=== PATIENT | male | born 1970 | race Caucasian/White ===

== ENCOUNTER 2016-09-30 15:47 | Inpatient (IN) | payer OTHER ==
--- NOTE | ~2016-09-30 | HP ---
Unit #: [id number] #: [id number] Patient: SEVERINO KHAN [id number] [place] [address] [id number] MR#: [id number] NAME: SEVERINO KHAN. ROOM: P186 Age: 46 Sex: M Admission Date: 09/30/2016 : 1970 Attending Physician: Dominique Almanza M.D. Admitting Physician: Dominique Almanza M.D. Primary Care Physician: Generic Doctor Not In System HISTORY AND PHYSICAL HISTORY OF PRESENT ILLNESS Severino is a 46 year old, admitted to [facility] with depression, verbalizing wanting to hurt himself. PAST MEDICAL HISTORY 1. Obesity. 2. Gastroparesis. 3. History of polysubstance abuse. PAST SURGICAL HISTORY 1. Appendectomy. 2. Cholecystectomy. 3. Fractured femur with open reduction and internal fixation. 4. 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 ALLERGIES Darvocet, Toradol (rash). SOCIAL HISTORY He denies cigarettes, alcohol, and current illicit drug use but does have a history of illicit drug use. FAMILY HISTORY Medically noncontributory. REVIEW OF SYSTEMS CONSTITUTIONAL: No fever or chills. HEENT: Denies any sore throat, ear pain or runny nose. CARDIOVASCULAR: Denies chest pain, irregular heart rhythm or palpitations. CHEST: Denies shortness of breath or cough. No hemoptysis. GASTROINTESTINAL: Denies nausea, vomiting, diarrhea or chronic constipation. ENDOCRINE: Denies history of increased thirst or urination. No recent significant weight loss or gain. GENITOURINARY: Denies dysuria, frequency, or hematuria. SKIN: Denies any rashes. HEMATOLOGIC: Denies history of increased bleeding or bruising. MUSCULOSKELETAL: Denies any hot, swollen joints. No generalized muscle pain. NEUROLOGIC: Denies problems with vision or speech. No frequent, severe headaches. No numbness, tingling or weakness in any extremities. Denies loss of bladder or bowel control. Unit #: [id number] #: [id number] Patient: SEVERINO KHAN CURRENT MEDICATIONS 1. Seroquel 100 mg b.i.d. 2. Naproxen 500 mg b.i.d. 3. Remeron 45 mg q.h.s. 4. Vistaril 50 mg t.i.d. 5. Milk of magnesia p.r.n. 6. Maalox p.r.n. 7. Tylenol p.r.n. 8. Norvasc 10 mg daily 9. Effexor 75 mg daily PHYSICAL EXAMINATION GENERAL: Alert, obese, no apparent distress. VITAL SIGNS: Blood pressure 110/66, heart rate 80, respirations 16, and temperature 98.6. WEIGHT: 280 pounds. HEIGHT: 5 feet 2 inches. SKIN: Warm and dry without rash or lesion. HEENT: Normocephalic. TMs not viewed. Oral and nasal passages clear. Conjunctivae clear. PERRLA. EOMs intact. NECK: Supple without lymphadenopathy or thyromegaly. HEART: Regular rate and rhythm without murmur. LUNGS: Clear. ABDOMEN: Soft, nontender. : Not done. EXTREMITIES: No evidence of cyanosis, clubbing or edema. Moves all without focal deficit. NEUROLOGICAL: Grossly within normal limits. Cranial Nerves: II: Visual fountain are intact. III, IV AND : Extraocular movements are intact. Pupils are equal, round and reactive to light. V: Facial sensation is grossly normal. VII: Facial movements and expression are normal. VIII: Auditory acuity grossly intact. IX, X: Uvula is midline. Phonation is normal. XI: Patient shrugs shoulders and turns head normally. XII: Tongue protrudes in the midline. Sensory and Motor Function: Sensory and motor sensation is grossly normal. Motor: moves all extremities well. Coordination: Gait is normal. Deep Tendon Reflexes: Intact. IMPRESSION Psychiatric admission. RECOMMENDATIONS Psychiatric, per psychiatrist. MEDICAL 1. I see no contraindications to participating in facility's activities. 2. Continue Norvasc, monitor blood pressure every shift. MEDICAL PROGNOSIS Good. MEDICAL CONDITION Stable. Dictated by... Unit #: [id number] #: [id number] Patient: SEVERINO KHAN P.A.-C. for Kenneth Bragg/mazin TD: 10/01/2016 12:35 JOB #: [id number] HISTORY AND PHYSICAL X So Prince X HISTORY AND PHYSICAL
--- NOTE | ~2016-09-30 | PN ---
Unit #: [id number] #: [id number] Patient: LASHA KHAN [id number] [facility] [address] [place] [address] [id number] I MR#: [id number] NAME: LASHA KHAN. ROOM: 86 Age: 46 Sex: M Admission Date: 09/30/2016 : 1970 Attending Physician: Dominique Almanza M.D. Admitting Physician: Dominique Almanza M.D. Primary Care Physician: Generic Doctor Not In System [facility] PROGRESS NOTES DATE 10/02/2016 DISCUSSION Mr. Khan is a 46-year-old white male with mood disorder and psychosis who was seen today and chart was reviewed and case was discussed with the staff. He was laying in his bed and reports not feeling good and reports persistent depression, anxiety, restlessness. He has been taking medications and tolerating them fairly well with no reported side effects. MENTAL STATUS EXAMINATION Middle-aged white male who was casually dressed with fair personal hygiene and appears to be in no acute distress or discomfort. He was awake and alert on interaction with intact orientation. His mood was anxious with congruent affect. His speech is slow and goal-directed. He denies any suicidal or homicidal ideations and also denies any auditory or visual hallucinations. His insight and judgement remains slightly impaired. TREATMENT PLAN 1. Will continue on his current medications and treatment protocol. Will monitor his response to the medications and make further adjustments as needed. 2. Will continue to follow up. Dictated by... Kenneth Gale/martha TD: 10/02/2016 21:49 JOB #: [id number] Unit #: [id number] #: [id number] Patient: LASHA KHAN PROGRESS NOTES X Dominique Almanza MD PROGRESS NOTE
--- NOTE | ~2016-09-30 | PN ---
Unit #: [id number] #: [id number] Patient: LASHA KHAN [id number] [facility] [address] [place] [address] [id number] I MR#: [id number] NAME: LASHA KHAN. ROOM: P178 Age: 46 Sex: M Admission Date: 09/30/2016 : 1970 Attending Physician: Dominique Almanza M.D. Admitting Physician: Dominique Almanza M.D. Primary Care Physician: Generic Doctor Not In System [facility] PROGRESS NOTES DATE OF SERVICE: 10/01/2016 SUBJECTIVE Mr. Khan is a 46-year-old white male, who was seen today and chart was reviewed and the case was discussed with the staff, who reports the patient has been anxious and withdrawn, though has not shown any agitation or aggression and has been cooperative with the treatment recommendations. He has been taking the medications and tolerating them fairly well with no reported side effects. MENTAL STATUS EXAMINATION Middle-aged white male, who was casually dressed with fair personal hygiene, appears to be in no acute distress or discomfort. He was awake and alert on interaction with intact orientation. His mood was anxious and depressed with a congruent affect. His speech was slow and goal directed. He reports having suicidal ideations as well as auditory hallucinations. His insight and judgment remain significantly impaired. TREATMENT PLAN 1. We will continue him on his current medications and treatment protocol. We will monitor his response to the medications and make further adjustments as needed. 2. We will continue to follow up. Dictated by... Kenneth Gale/cornelia TD: 10/02/2016 15:06 JOB #: [id number] [facility] PROGRESS NOTES X Dominique Almanza MD PROGRESS NOTE
--- NOTE | ~2016-09-30 | DS ---
Unit #: [id number] #: [id number] [facility]UR[facility] [id number] [facility] [address] [place] [address] [id number] I MR#: [id number] NAME: LASHA BURNS. ROOM: [facility] Age: 46 Sex: M Admission Date: 09/30/2016 : 1970 Discharge Date: 10/03/2016 Attending Physician: Dominique Almanza M.D. Primary Care Physician: Generic Doctor Not In System DISCHARGE SUMMARY SUBJECTIVE Mr. Burns is a 46-year-old white male who comes in as a self-referred to the hospital. DISCHARGE DIAGNOSES Psychiatric: Major depressive disorder, recurrent, . HISTORY OF PRESENT ILLNESS Please see initial psychiatric evaluation for details. PAST PSYCHIATRIC HISTORY Please see initial psychiatric evaluation for details. PAST MEDICAL HISTORY Please see initial psychiatric evaluation for details. HOSPITAL COURSE The patient was admitted to the adult psychiatric unit at [facility] sonal Kemp and was oriented to the hospital environment. Routine p.r.n. medications were initiated and he was started back on his home medications and detox protocol was initiated as well. He initially seen to be fairly well and was less restless and anxious, but still having detox symptoms, however, late night of 10/02/2016 his symptoms have usually seen to be slowly quite hard and having started wheezing in the sleep. He has been noted to jaw dropping and medical consultation was requested as the O2 sats dropped to 80s and he was sent out to the emergency room from he stated and reports are indicated that he continued to just withdrawal. DISCHARGE CONDITION Stable. PROGNOSIS Guarded. Dictated by... Kenneth Gale/cornelia TD: 10/03/2016 22:39 JOB #: [id number] Unit #: [id number] #: [id number] Patient: LASHA BURNS DISCHARGE SUMMARY X Dominique Almanza MD X DISCHARGE SUMMARY
--- NOTE | ~2016-09-30 | PA ---
Unit #: [id number] #: [id number] Patient: LASHA KHAN [id number] [facility] [address] [place] [address] [id number] I MR#: [id number] NAME: LASHA KHAN. ROOM: P186 Age: 46 Sex: M Admission Date: 09/30/2016 : 1970 Date of Assessment: 09/30/2016 Attending Physician: Dominique Almanza M.D. Admitting Physician: Dominique Almanza M.D. Primary Care Physician: Generic Doctor Not In System PSYCHIATRIC ASSESSMENT IDENTIFYING DATA Mr. Khan is a 46-year-old, , white male, who is a resident of [place], [place], who is very well known to us from previous multiple encounters and was transferred to us from [facility]. CHIEF COMPLAINT "I've been hearing voices telling me to hurt myself." HISTORY OF PRESENT ILLNESS Mr. Khan is a 46-year-old white male, who was transferred to us from [facility] Emergency Room where he was brought in by his mother because he was hearing voices that telling him to hurt himself and that he was going to stab himself today and that has been going on for 4 to 5 days and he has been hearing voices to hurt someone else and "right, wrongs and sabianism stuffs and I cannot go into it right now. I feel real depressed. Arthritis is bothering me. My son is getting ready to go to the [facility]. A lot of things are going on. I feel overwhelmed. I'm not sleeping, may be 3 hours, anxiety, real bad. I cannot catch my breath, I'm going through it. I've been going through it for a week now." The patient also has to move due to building being sold and has been living with his mother and brother and does endorse feelings of hopelessness and helplessness, and suicidal ideation and as such, recommendation for inpatient level of care was made. The patient was medically cleared and then transferred to us. SUBSTANCE ABUSE HISTORY The patient reports history of alcohol dependence and has been drinking a pint to a fifth and reports that he has been binge drinking and his last drink was a couple of days ago and had a blood alcohol level of 0 upon presentation. He also reports that he has been smoking 3 to 4 blunts a day. PAST PSYCHIATRIC HISTORY The patient has had a history of multiple inpatient psychiatric hospitalizations at [facility] and has been diagnosed and treated for bipolar disorder and has a history of poor compliance with outpatient treatment recommendation. PAST MEDICAL HISTORY Significant for hypertension, gastroesophageal reflux disease. ALLERGIES Unit #: [id number] #: [id number] Patient: LASHA KHAN Darvocet and Toradol. PERSONAL AND SOCIAL HISTORY A 46-year-old white male, who reports that he is and and currently has been living at home with his mother and his brother and is unemployed and has poor social support system. MENTAL STATUS EXAMINATION Middle-aged white male, who was casually dressed with fair personal hygiene, appears to be in no acute distress or discomfort. He was awake and alert on interaction with intact orientation to time, place, and person. His mood was anxious and depressed with a congruent affect. His speech was slow and goal directed. He reports having suicidal ideations as well as command auditory hallucinations. His insight and judgment remain significantly impaired. DIAGNOSTIC IMPRESSION Psychiatric: Bipolar disorder, the most recent episode depressed, recurrent, moderate, with psychosis; alcohol dependence, moderate and acute withdrawals; cannabis dependence, moderate. Medical: Hypertension, arthritis. Stressors: Moderate psychosocial stressors. TREATMENT PLAN 1. The patient has presented with a history of substance abuse and mood disorder, and has been decompensating and will need inpatient hospitalization for safety and stabilization. We will start him back on his home medications. We will adjust the medications and monitor response. 2. Supportive therapy was provided to the patient. ESTIMATED LENGTH OF STAY 5 to 7 days. ABILITY TO HELP SELF Limited. WILLINGNESS TO HELP SELF The patient appears to be willing to help self. STRENGTHS 1. Communicative. 2. Cooperative. PROBLEMS 1. Chronic dysphoric symptoms. 2. Chronic chemical dependency. 3. Poor social support system. DISCHARGE CRITERIA This will be contingent upon the patient's ability to show resolution of his depression and anxiety and his ability to stay safe to himself, particularly after discharge from the hospital. Dictated by... Dominique Almanza M.D. Unit #: [id number] #: [id number] Patient: LASHA KHAN BECKY/modl TD: 10/01/2016 08:31 JOB #: [id number] PSYCHIATRIC ASSESSMENT X Dominique Almanza MD PSYCHIATRIC ASSESSMENT
[~2016-09-30 15:47] MED LIST: ASPIRIN81 M1 PO; AUGMENTIN PO; BACTRIM DS TABL1 TAB PO; CELEXA PO; CIPRO PO; COUMADIN PO; CYMBALTA PO; DEPAKOTE; DEPAKOTE PO; DESYREL100 MG PO; EFFEXOR; EFFEXOR PO; FLAGYL PO; FLEXERIL10 MG PO; GEODAN PO; GEODON80 MG PO; KEFLEX PO; KLONOPIN; KLONOPIN PO; LOMOTIL TABLET1 TAB PO; LORTAB 10-5001 EACH PO; LORTAB 5/500 TA1 TA1 PO; LORTAB 7.5-5001 TAB PO; LORTAB 7.51 TAB 7.5/ PO; NEURONTIN PO; NICOTINE TRANSD21 MG EXT; PAXIL PO; PERCOCET PO; PERPHENAZINE8 MG PO; PHENERGAN PO; PRILOSEC PO; PROTONIX PO; QUESTRAN PACK4 G/PKT PO; RISPERDAL0.25 MG; RISPERDAL3 MG PO; SEROQUEL; SEROQUEL PO; SEROQUEL XR200 MG PO; THORAZINE; THORAZINE PO; THORAZINE50 MG PO; TRAZODONE HCL300 MG PO; TRAZODONE PO; VICODIN 5/1 TAB 5/50 PO; VICODIN 5/500 T1 TAB PO; ZITHROMAX PO; [UNRECOGNIZED DRUG - OTHER]; [UNRECOGNIZED DRUG - OTHER]; [UNRECOGNIZED DRUG - OTHER] PO; [UNRECOGNIZED DRUG - OTHER] PO; [UNRECOGNIZED DRUG - OTHER] PO
[2016-10-01 12:24] LABS: BASOPHIL# 0.1 X10e3 (0-0.3); EOSINOPHIL# 0.4 X10e3 (0-0.7); EOSINOPHIL% 4.4 % (0.0-7.0); HEMOGLOBIN 14.8 gm/dL (13.0-16.0); LYMPHOCYTE% 24.2 % (17.0-45.0); MEAN CELL VOLUME 86.4 FL (83-96); MEAN CORPUSCULAR HEMOGLOBIN 28.5 PG (28-34); MEAN CORPUSCULAR HGB CONC 32.9 g/dL (30-36); MEAN PLATELET VOLUME 9.7 FL (6.5-11.5); MONOCYTE# 0.7 X10e3 (0-1.0); MONOCYTE% 8.3 % (3.0-12.0); NEUTROPHIL% 62.1 % (40-75); PLATELET COUNT 151 X10e3 (140-420); RED CELL DISTRIBUTION WIDTH 14.2 % (11.0-15.5); WHITE BLOOD COUNT 8.1 X10e3 (4.0-10.5)
[2016-10-01 12:41] LABS: DIFF IND NO
[2016-10-01 12:49] LABS: THYROID STIMULATING HORMONE 1.53 uIU/ml (0.34-5.60)
[2016-10-01 12:51] LABS: ALBUMIN SERUM 3.8 g/dL (3.5-5.0); ALKALINE PHOSPHATASE 55 U/L (32-92); ALT (SGPT) 52 U/L (10-40); AST (SGOT) 45 U/L (10-42); BILIRUBIN,TOTAL 0.5 mg/dL (0.2-2.0); BLOOD UREA NITROGEN 13 mg/dL (9-23); BUN/CREATININE RATIO 16.25; CALCIUM SERUM 9.5 mg/dL (8.4-10.2); CARBON DIOXIDE 31 mmol/L (22-31); CHLORIDE 98 mmol/L (100-111); CREATININE SERUM 0.8 mg/dL (0.6-1.4); GLOM FILT RATE Estimated ABOVE60 mL/min (>60); GLUCOSE FASTING 153 mg/dL (70-110); PROTEIN TOTAL SERUM 6.2 g/dL (6.0-8.3); SODIUM 140 mmol/L (135-145)
[2016-10-01 12:58] LABS: FREE THYROXIN (T4) 0.67 ng/dL (0.58-1.64)
== END 2016-10-03 06:15 | DRG 885 ==
LOC: P1E 15:47 → POF 10-01 12:53 → P1E 10-01 12:56 → POF 10-02 23:20 → P1E 10-02 23:21
PROVIDERS: Psychiatry & Neurology Psychiatry
DX: F31.32 Bipolar disorder, current episode depressed, moderate (principal); I10 Essential (primary) hypertension; F10.239 Alcohol dependence with withdrawal, unspecified; K21.9 Gastro-esophageal reflux disease without esophagitis; F12.20 Cannabis dependence, uncomplicated
CPT/HCPCS: 80053; 84439; 84443; 85025; 86592

== ENCOUNTER 2016-12-03 12:00 | Inpatient (IN) | payer OTHER ==
--- NOTE | ~2016-12-03 | PN ---
Unit #: [id number] #: [id number] Patient: LASHA KHAN [id number] [facility] [address] [place] [address] [id number] MR#: [id number] NAME: LASHA KHAN. ROOM: P205 Age: 46 Sex: M Admission Date: 12/03/2016 : 1970 Attending Physician: Dominique Almanza M.D. Admitting Physician: Dominique Almanza M.D. Primary Care Physician: Primary Care Physician Bridget PAGE NOTES DATE 12/04/2016 DISCUSSION Mr. Khan is a 46-year-old white male who was seen today and chart was reviewed and case was discussed with the staff. He has been anxious, withdrawn though has not shown any agitation, irritability and has been cooperative with treatment recommendations as he is taking medications and tolerating them fairly well with no reported side effects. MENTAL STATUS EXAMINATION Middle-aged white male who was casually dressed with fair personal hygiene and appears to be in no acute distress or discomfort. He was awake and alert with intact orientation. His mood was anxious with congruent affect. He denies any suicidal ideations and also denies any auditory or visual hallucinations. His insight and judgement . TREATMENT PLAN 1. Will continue on his current medications and treatment protocol and will monitor his response to medications and make further adjustments as needed. 2. Will continue to follow up. Dictated by... Dominique Almanza M.D. IAA/martha TD: 12/04/2016 15:56 JOB #: [id number] Unit #: [id number] #: [id number] Patient: LASHA KHAN BRITTNEY PROGRESS NOTES Page 1 of 1 X Dominique Almanza MD PROGRESS NOTE
--- NOTE | ~2016-12-03 | PA ---
Unit #: [id number] #: [id number] Patient: LASHA KHAN [id number] [facility] [address] [place] [address] [id number] I MR#: [id number] NAME: LASHA KHAN. ROOM: P205 Age: 46 Sex: M Admission Date: 12/03/2016 : 1970 Date of Assessment: 12/03/2016 Attending Physician: Dominique Almanza M.D. Admitting Physician: Dominique Almanza M.D. Primary Care Physician: Primary Care Physician No PSYCHIATRIC ASSESSMENT DATE OF SERVICE 12/03/2016. IDENTIFYING DATA Mr. Khan is a 46-year-old, white male, who is very well known to me from previous multiple encounters and is a resident of [place], [place], and was transferred to us from [facility]. CHIEF COMPLAINT "I've been having suicidal thoughts with a plan to stab myself before 4 to 5 days." HISTORY OF PRESENT ILLNESS Mr. Khan is a 46-year-old white male with long history of mood disorder and substance abuse, who was once again transferred back to us from [facility], where he was brought in on a voluntary basis stating that he has been having suicidal thoughts with a plan to stab himself "due to voices telling me to kill myself. It has been getting worse lately. Today, it was really bad. I'm taking my medication and my PCP has been prescribing it and I've not been about 6 to 7 months, but needed to get established again. I've also been on a drinking binge for about one month and then, I'm drinking about a fifth of whiskey and my last use was last night." The patient reports that he has also been smoking cannabis 3 times a week about a 1 to 2 blunts and last use a few days ago and reports increasing stressors after learning his son is going to the retirement and awaiting for a timeframe for sentencing and it has moved recently and he is finalizing his divorce soon as well. Mother brought him to the hospital and reports that he has been suicidal for 4 to 5 days. Hearing voices, telling him to stab himself, and the patient was seen to be a significant threat to himself and as such recommendation for inpatient level of care for safety and stabilization was made. The patient was transferred to us for substance abuse. The patient reports history of experimentation with cocaine and cannabis, but alcohol has been his drug of choice as he reports that he has been drinking since he was 28 years old and currently has been drinking fifth of whiskey a day. PAST PSYCHIATRIC HISTORY The patient has had history of multiple inpatient psychiatric hospitalizations at [facility], as well as outpatient treatment through [facility], and has been diagnosed and treated for bipolar disorder. Review of the medical records indicate that he has been on combination of psychotropic medications. Unit #: [id number] #: [id number] Patient: LASHA KHAN PAST MEDICAL HISTORY Hypertension, gastroesophageal reflux disease, rheumatoid arthritis, right finger fourth digit amputation. ALLERGIES Toradol and Darvocet. PERSONAL AND SOCIAL HISTORY A 46-year-old white male who reports that he is and and going through divorce, and lives with his mother and his brother and has fairly decent social support system. MENTAL STATUS EXAMINATION Middle-aged white male who was casually dressed with fair personal hygiene, appears to be in no acute distress or discomfort. He was awake and alert on interaction with intact orientation to time, place, and person. His mood was anxious and depressed with a congruent affect. His speech was slow and restricted in content. He reports having suicidal ideations, and does report auditory and visual hallucinations. His insight and judgment remain significantly impaired. DIAGNOSTIC IMPRESSION Psychiatric: Bipolar disorder, most recent episode depressed, recurrent, moderate, with psychosis; alcohol dependence, moderate and acute withdrawals. Medical: Hypertension, gastroesophageal reflux disease, rheumatoid arthritis, status post right fourth finger amputation. Stressors: Moderate psychosocial stressors. TREATMENT PLAN 1. The patient has presented with a history of mood disorder and substance abuse. We will recommend enrolling inpatient hospitalization for safety and stabilization. We will start him back on his home medications. We will adjust the medications and monitor response. 2. Supportive therapy was provided to the patient. 3. Safe, structured, and nourishing will be provided. ESTIMATED LENGTH OF STAY 5 to 7 days. ABILITY TO HELP SELF Limited. WILLINGNESS TO HELP SELF The patient appears to be willing to help self. STRENGTHS 1. Communicative. 2. Cooperative. PROBLEMS 1. Chronic dysphoric symptoms. 2. Poor social support system. DISCHARGE CRITERIA This will be contingent upon the patient's ability to show resolution of his depression and anxiety and his ability to stay safe to himself, particularly after discharge from the hospital. Unit #: [id number] #: [id number] Patient: LASHA KHAN Dictated by... Kenneth Gale/cornelia TD: 12/04/2016 07:30 JOB #: [id number] PSYCHIATRIC ASSESSMENT Page 1 of 1 X Dominique Almanza MD X PSYCHIATRIC ASSESSMENT
--- NOTE | ~2016-12-03 | HP ---
Unit #: [id number] #: [id number] Patient: SEVERINO KHAN [id number] [place] [address] [id number] I MR#: [id number] NAME: SEVERINO KHAN. ROOM: P205 Age: 46 Sex: M Admission Date: 12/03/2016 : 1970 Attending Physician: Dominique Almanza M.D. Admitting Physician: Dominique Almanza M.D. Primary Care Physician: Primary Care Physician No HISTORY AND PHYSICAL HISTORY OF PRESENT ILLNESS Severino is a 46 year old admitted to [address] [place] [address] with depression and verbalizing wanting to hurt himself. He has had numerous admissions to this facility for the same. PAST MEDICAL HISTORY 1. Morbid obesity. 2. Gastroparesis. 3. History of polysubstance abuse. PAST SURGICAL HISTORY 1. Appendectomy. 2. Cholecystectomy. 3. Fractured femur with ORIF. 4. 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 ALLERGIES Darvocet, Toradol (rash). SOCIAL HISTORY He denies cigarettes and alcohol. He has a history of illicit drug use but denies anything currently. FAMILY HISTORY Medically noncontributory. REVIEW OF SYSTEMS CONSTITUTIONAL: No fever or chills. HEENT: Denies any sore throat, ear pain or runny nose. CARDIOVASCULAR: Denies chest pain, irregular heart rhythm or palpitations. CHEST: Denies shortness of breath or cough. No hemoptysis. GASTROINTESTINAL: Denies nausea, vomiting, diarrhea or chronic constipation. ENDOCRINE: Denies history of increased thirst or urination. No recent significant weight loss or gain. GENITOURINARY: Denies dysuria, frequency, or hematuria. SKIN: Denies any rashes. HEMATOLOGIC: Denies history of increased bleeding or bruising. MUSCULOSKELETAL: Denies any hot, swollen joints. No generalized muscle pain. NEUROLOGIC: Denies problems with vision or speech. No frequent, severe headaches. No numbness, tingling or weakness in any extremities. Denies loss of bladder or bowel control. Unit #: [id number] #: [id number] Patient: SEVERINO KHAN CURRENT MEDICATIONS 1. Seroquel 100 mg t.i.d. 2. Proventil inhaler p.r.n. 3. Albuterol Mini-Neb q. 4 hours p.r.n. 4. Remeron 45 mg q.h.s. 5. Tylenol p.r.n. 6. Naproxen 500 mg b.i.d. 7. Milk of Magnesia p.r.n. 8. Maalox p.r.n. 9. Norvasc 10 mg q. day. 10. Multivitamin 1 q. day. 11. Detox protocol. PHYSICAL EXAMINATION GENERAL: Alert, morbidly obese. No apparent distress. VITAL SIGNS: Blood pressure 120/76, heart rate 80, respirations 16, and temperature 98.6. WEIGHT: 290. HEIGHT: 6 feet 2 inches. SKIN: Warm and dry without rash or lesion. HEENT: Normocephalic. TMs not viewed. Oral and nasal passages clear. Conjunctivae clear. PERRLA. EOMs intact. NECK: Supple without lymphadenopathy or thyromegaly. HEART: Regular rate and rhythm without murmur. LUNGS: Clear. ABDOMEN: Soft, nontender. : Not done. EXTREMITIES: No evidence of cyanosis, clubbing or edema. Moves all without focal deficit. NEUROLOGICAL: Grossly within normal limits. Cranial Nerves: II: Visual fountain are intact. III, IV AND : Extraocular movements are intact. Pupils are equal, round and reactive to light. V: Facial sensation is grossly normal. VII: Facial movements and expression are normal. VIII: Auditory acuity grossly intact. IX, X: Uvula is midline. Phonation is normal. XI: Patient shrugs shoulders and turns head normally. XII: Tongue protrudes in the midline. Sensory and Motor Function: Sensory and motor sensation is grossly normal. Motor: moves all extremities well. Coordination: Gait is normal. Deep Tendon Reflexes: Intact. IMPRESSION Psychiatric admission. RECOMMENDATIONS PSYCHIATRIC: Per psychiatrist. MEDICAL: I see no contraindication to participate in this facility's activities. MEDICAL PROGNOSIS Good. MEDICAL CONDITION Stable. Unit #: [id number] #: [id number] Patient: SEVERINO KHAN Dictated by... So Prince P.A.-C. for Kenneth Bragg/elliot TD: 12/04/2016 15:15 JOB #: [id number] HISTORY AND PHYSICAL Page 1 of 1 X So Prince HISTORY AND PHYSICAL
--- NOTE | ~2016-12-03 | DS ---
Unit #: [id number] #: [id number] Patient: LASHA BURNS [id number] [facility] [address] [place] [address] [id number] I MR#: [id number] NAME: LASHA BURNS. ROOM: [facility] Age: 46 Sex: M Admission Date: 12/03/2016 : 1970 Discharge Date: 12/09/2016 Attending Physician: Dominique Almanza M.D. Primary Care Physician: No Primary Care Physician DISCHARGE SUMMARY IDENTIFYING DATA Mr. Burns is a 46-year-old, white male, who is known to us from previous encounters who was self-referred to the hospital on a voluntary basis. DISCHARGE DIAGNOSES PSYCHIATRIC: 1. Bipolar disorder, most recent episode depressed, recurrent, moderate, without psychotic features. 2. Alcohol dependence, moderate, in acute withdrawal. MEDICAL 1. Hypertension. 2. Arthritis. STRESSORS: Moderate psychosocial stressors. HISTORY OF PRESENT ILLNESS Please see initial psychiatric evaluation. PAST PSYCHIATRIC HISTORY Please see initial psychiatric evaluation. PAST MEDICAL HISTORY Please see initial psychiatric evaluation. HOSPITAL COURSE The patient was admitted to the adult psychiatric chemical dependency unit at [facility] and was oriented to the hospital environment. Routine p.r.n. medications were initiated and he was started on alcohol detox protocol and was closely monitored. He was taking the medications regularly and seemed to be rather very seclusive to himself. However, he was not showing any agitation or aggression and was compliant with the treat recommendations and (1) . He was able to come out of the detox without any complications and was willing to continue treatment on outpatient basis and, as such, it was decided that he will be discharged and will continue treatment on outpatient basis. DISCHARGE MEDICATIONS 1. SEROquel 100 mg in the morning and afternoon 600 mg at bedtime for depression. 2. Remeron 45 mg at bedtime for depression. 3. Vistaril 50 mg p.r.n. q.6 hours for anxiety. Unit #: [id number] #: [id number] Patient: LASHA BURNS DISCHARGE CONDITION Stable. PROGNOSIS Fair. Dictated by... Kenneth Gale/sunny TD: 12/11/2016 08:36 JOB #: [id number] DISCHARGE SUMMARY Page 1 of 1 X Dominique Almanza MD DISCHARGE SUMMARY
--- NOTE | ~2016-12-03 | PN ---
Unit #: [id number] #: [id number] Patient: LASHA BURNS [id number] [facility] [address] [place] [address] [id number] I MR#: [id number] NAME: LASHA BURNS. ROOM: P205 Age: 46 Sex: M Admission Date: 12/03/2016 : 1970 Attending Physician: Dominique Almanza M.D. Admitting Physician: Dominique Almanza M.D. Primary Care Physician: Primary Care Physician Bridget LUGO PROGRESS NOTES DATE 12/06/2016 DISCUSSION Mr. Burns is a 46-year-old white male who was seen today and chart was reviewed and case was discussed with the staff. He has been anxious, withdrawn and rather seclusive to himself. Meanwhile, he has been cooperative with treatment recommendations and has been taking medications and tolerating them fairly well with no reported side effects. MENTAL STATUS EXAMINATION Middle-aged white male who was casually dressed with fair personal hygiene and appears to be in no acute distress or discomfort. He was awake and alert on interaction with intact orientation. His mood was anxious with congruent affect. He denies any suicidal or homicidal ideation. His insight and judgement remains slightly impaired. TREATMENT PLAN 1. We will continue on his current medications and treatment protocol and will monitor his response to the medications and make further adjustments as needed. 2. Will continue to follow up. Dictated by... Kenneth Gale/martha TD: 12/06/2016 22:05 JOB #: [id number] Unit #: [id number] #: [id number] Patient: LASHA BURNS BRITTNEY PROGRESS NOTES Page 1 of 1 X Dominique Almanza MD PROGRESS NOTE
--- NOTE | ~2016-12-03 | PN ---
Unit #: [id number] #: [id number] Patient: LASHA KHAN [id number] [facility] [address] [place] [address] [id number] I MR#: [id number] NAME: LASHA KHAN. ROOM: P205 Age: 46 Sex: M Admission Date: 12/03/2016 : 1970 Attending Physician: Dominique Almanza M.D. Admitting Physician: Dominique Almanza M.D. Primary Care Physician: Primary Care Physician Bridget LUGO PROGRESS NOTES DATE OF SERVICE 12/05/2016 DISCUSSION Mr. Khan is 46-year-old white male who was seen today. Chart was reviewed and case was discussed with the staff. He has been anxious, withdrawn, and rather seclusive to himself. Meanwhile, he has been cooperative with the treatment recommendations and has been taking the medications and tolerating them fairly well with no reported side effects. MENTAL STATUS EXAMINATION Middle-aged white male who is casually dressed with fair personal hygiene, appears to be in no acute distress or discomfort. He was awake and alert on interaction with intact orientation. His mood is anxious with a congruent affect. He denies any suicidal or homicidal ideations. His insight and judgment remain slightly impaired. TREATMENT PLAN 1. We will continue him on his current medications and treatment protocol. We will monitor his response to the medications and make further adjustments as needed. 2. We will continue to follow up. Dictated by... Dominique Almanza M.D. IAA/bzg TD: 12/05/2016 10:14 JOB #: [id number] BRITT[facility] PROGRESS NOTES Page 1 of 1 X Dominique Almanza MD PROGRESS NOTE
--- NOTE | ~2016-12-03 | PN ---
Unit #: [id number] #: [id number] Patient: LASHA BURNS [id number] [facility] [address] [place] [address] [id number] MR#: [id number] NAME: LASHA BURNS. ROOM: P205 Age: 46 Sex: M Admission Date: 12/03/2016 : 1970 Attending Physician: Dominique Almanza M.D. Admitting Physician: Dominique Almanza M.D. Primary Care Physician: Primary Care Physician Bridget LUGO PROGRESS NOTES DATE OF SERVICE: 12/07/2016 SUBJECTIVE Mr. Burns is a 46-year-old white male who was seen today and chart was reviewed, and case was discussed with the staff. He was lying in his bed and once again, he has been wanting to leave and has always come up with an excuse. Now he stated that his niece has all of a sudden and he has to leave the hospital, even though, he had not reported any information like that from his family. MENTAL STATUS EXAMINATION Middle-aged white male who was casually dressed with fair personal hygiene, and appears to be in no acute distress or discomfort. He was awake and alert with impaired attention and concentration. His mood was anxious with a congruent affect. He denies any suicidal or homicidal ideations. His insight and judgment remain slightly impaired. TREATMENT PLAN 1. We will continue him on his current treatment protocol. We will monitor his response to medications and make further adjustments as needed. 2. We will continue to follow up. Dictated by... Kenneth Gale/cornelia TD: 12/07/2016 14:31 JOB #: [id number] [facility] PROGRESS NOTES Page 1 of 1 X Dominique Almanza MD PROGRESS NOTE
--- NOTE | ~2016-12-03 | PN ---
Unit #: [id number] #: [id number] Patient: LASHA KHAN [id number] [facility] [address] [place] [address] [id number] I MR#: [id number] NAME: LASHA KHAN. ROOM: P208 Age: 46 Sex: M Admission Date: 12/03/2016 : 1970 Attending Physician: Dominique Almanza M.D. Admitting Physician: Dominique Almanza M.D. Primary Care Physician: Primary Care Physician Bridget LUGO PROGRESS NOTES DATE OF SERVICE 12/08/2016 DISCUSSION Mr. Khan is a 46-year-old white male who was seen today. Chart was reviewed and case was discussed with staff. He has been anxious, withdrawn, and seclusive to himself but has not shown any agitation or aggression. Meanwhile, he has been taking the medications and tolerating them fairly well with no reported side effects. MENTAL STATUS EXAMINATION Middle-aged white male who is casually dressed with fair personal hygiene, appears to be in no acute distress or discomfort. He was awake and alert on interaction with intact orientation. His mood is anxious with congruent affect. He denies any suicidal or homicidal ideations and also denies any auditory or visual hallucinations. His insight and judgment remain slightly impaired. TREATMENT PLAN 1. We will continue him on his current medications and treatment protocol. We will monitor his response to the medications and make further adjustments as needed. 2. We will continue to follow up. Dictated by... Dominique Almanza M.D. IAA/bzg TD: 12/09/2016 08:46 JOB #: [id number] Unit #: [id number] #: [id number] Patient: LASHA KHANHEBER PROGRESS NOTES Page 1 of 1 X Dominique Almanza MD PROGRESS NOTE
[2016-12-05 10:01] LABS: BASOPHIL# 0.1 X10e3 (0-0.3); BASOPHIL% 1.1 % (0-2.5); EOSINOPHIL# 0.3 X10e3 (0-0.7); EOSINOPHIL% 4.1 % (0.0-7.0); HEMATOCRIT 43.3 % (38.0-50.0); HEMOGLOBIN 14.4 gm/dL (13.0-16.0); LYMPHOCYTE# 1.8 X10e3 (1.0-3.5); LYMPHOCYTE% 22.2 % (17.0-45.0); MEAN CELL VOLUME 85.5 FL (83-96); MEAN CORPUSCULAR HEMOGLOBIN 28.4 PG (28-34); MEAN CORPUSCULAR HGB CONC 33.2 g/dL (30-36); MEAN PLATELET VOLUME 9.7 FL (6.5-11.5); MONOCYTE# 0.6 X10e3 (0-1.0); MONOCYTE% 7.4 % (3.0-12.0); NEUTROPHIL# 5.2 X10e3 (1.5-7.1); NEUTROPHIL% 65.2 % (40-75); PLATELET COUNT 149 X10e3 (140-420); RED BLOOD COUNT 5.06 X10e (3.90-5.60); RED CELL DISTRIBUTION WIDTH 14.2 % (11.0-15.5)
[2016-12-05 10:03] LABS: URINE APPEARANCE CLEAR; URINE BILIRUBIN NEG (NEG); URINE BLOOD NEG (NEG); URINE COLOR DK YELLOW; URINE GLUCOSE NEG (NEG); URINE KETONE NEG (NEG); URINE LEUKOCYTE ESTERASE NEG (NEG); URINE NITRATE NEG (NEG); URINE PROTEIN NEG (NEG); URINE SPECIFIC GRAVITY 1.015 (1.003-1.035); URINE UROBILINOGEN 0.2 MG/DL (NEG)
[2016-12-05 10:04] LABS: DIFF IND NO
[2016-12-05 10:28] LABS: AMPHETAMINE NEG (NEG); BARBITURATES NEG (NEG); BENZODIAZEPINES POS (NEG); COCAINE NEG (NEG); MARIJUANA POS (NEG); OPIATES NEG (NEG); TRICYCLIC ANTIDEPRESSANTS POS (NEG); U METHADONE NEG (NEG)
[2016-12-05 10:28] LABS: ALBUMIN SERUM 3.6 g/dL (3.5-5.0); BILIRUBIN,TOTAL 0.6 mg/dL (0.2-2.0); BUN/CREATININE RATIO 13.75; CALCIUM SERUM 8.9 mg/dL (8.4-10.2); CREATININE SERUM 0.8 mg/dL (0.6-1.4); GLOM FILT RATE Estimated 108.7 mL/min (>60); POTASSIUM 3.8 mmol/L (3.5-5.1)
== END 2016-12-09 10:04 | DRG 885 ==
LOC: POF 15:41 → P2S 15:41
PROVIDERS: Psychiatry & Neurology Psychiatry
DX: F31.32 Bipolar disorder, current episode depressed, moderate (principal); E66.01 Morbid (severe) obesity due to excess calories; I10 Essential (primary) hypertension; F10.239 Alcohol dependence with withdrawal, unspecified; K21.9 Gastro-esophageal reflux disease without esophagitis; M06.9 Rheumatoid arthritis, unspecified; Z89.021 Acquired absence of right finger(s); F41.9 Anxiety disorder, unspecified; Z88.5 Allergy status to narcotic agent
CPT/HCPCS: 80053; 80307; 81003; 85025

== ENCOUNTER 2017-01-06 13:24 | Inpatient (IN) | payer OTHER ==
--- NOTE | ~2017-01-06 | DS ---
Unit #: [id number] #: [id number] Patient: LASHA KHAN [id number] [facility] [address] [place] [address] [id number] I MR#: [id number] NAME: LASHA KHAN. ROOM: [facility] Age: 47 Sex: M Admission Date: 01/06/2017 : 1970 Discharge Date: 01/13/2017 Attending Physician: Dominique Almanza M.D. Primary Care Physician: Generic Doctor Not In System DISCHARGE SUMMARY IDENTIFYING DATA Mr. Khan is a 46-year-old white male with a history of mood disorder, who is very well known to us from previous encounter and was self-referred to the hospital on a voluntary basis. DISCHARGE DIAGNOSES Psychiatric: Bipolar disorder, most recent episode depressed, recurrent, moderate, without psychotic features; alcohol dependence, moderate. Medical: Hypertension, gastroesophageal reflux disease. Stressors: Moderate psychosocial stressors. HISTORY OF PRESENT ILLNESS Please see initial psychiatric evaluation for details. PAST PSYCHIATRIC HISTORY Please see initial psychiatric evaluation for details. PAST MEDICAL HISTORY Please see initial psychiatric evaluation for details. HOSPITAL COURSE The [facility] and was oriented to the hospital environment. Routine p.r.n. medications were initiated, and he was started back on his home medications and medications were adjusted and he was closely monitored. He was initially seen to be exhibiting some significant depression and anxiety, but was able to come out of his depression without any complications and was willing to continue treatment on an outpatient basis, and as such, it was decided that he will be discharged home and will continue treatment on an outpatient basis. DISCHARGE MEDICATIONS Seroquel 100 mg in the morning and afternoon and 600 mg at bedtime for bipolar, Remeron 45 mg at bedtime for depression, Norvasc 10 mg a day for hypertension, and Protonix 40 mg a day for acid reflux disease. DISCHARGE CONDITION Stable. PROGNOSIS Fair. Unit #: [id number] #: [id number] Patient: LASHA KHAN Dictated by... Kenneth Gale/modl TD: 01/13/2017 06:59 JOB #: [id number] DISCHARGE SUMMARY Page 1 of 1 X Dominique Almanza MD DISCHARGE SUMMARY
--- NOTE | ~2017-01-06 | CO ---
Unit #: [id number] #: [id number] Patient: SEVERINO KHAN [id number] [place] [address] [id number] I MR#: [id number] NAME: SEVERINO KHAN. ROOM: P113 Age: 47 Sex: M Admission Date: 01/06/2017 : 1970 Attending Physician: Dominique Almanza M.D. Primary Care Physician: Generic Doctor Not In System Consultation Date: 01/07/2017 CONSULTATION REPORT SUBJECTIVE Severino is a 46-year-old who complains of right upper quadrant pain not associated with nausea and vomiting. He denies any melena. OBJECTIVE GENERAL: Alert, morbidly obese, no apparent distress. VITAL SIGNS: Blood pressure 140/76, heart rate 80, respirations 16, temperature 98.6. ABDOMEN: Morbidly obese. Mildly tender in the right upper quadrant. No hepatosplenomegaly noted, although it is difficult because of his obesity. Bowel sounds in all quadrants. Severino has complained of abdominal pain for many years. In reviewing his medical records, he has had abdominal studies in 2010 and 2012. He was treated with proton pump inhibitor. ASSESSMENT Abdominal pain, chronic. PLAN Nexium 40 mg one p.o. daily. Severino knows he needs to follow up with his PCP. Dictated by... So Prince P.A.-C. for Kenneth Bragg/cornelia TD: 01/10/2017 22:08 JOB #: [id number] CONSULTATION REPORT Page 1 of 1 X So Prince X CONSULTATION REPORT
--- NOTE | ~2017-01-06 | PN ---
Unit #: [id number] #: [id number] Patient: LASHA KHAN [id number] [facility] [address] [place] [address] [id number] MR#: [id number] NAME: LASHA KHAN. ROOM: 13 Age: 46 Sex: M Admission Date: 01/06/2017 : 1970 Attending Physician: Dominique Almanza M.D. Admitting Physician: Dominique Almanza M.D. Primary Care Physician: Generic Doctor Not In System [facility] PROGRESS NOTES DATE 01/07/2017 DISCUSSION Mr. Khan is a 46-year-old white male who was seen today and chart was reviewed and case was discussed with the staff. He has been doing fairly well and has been sleeping very comfortably in his bed and yet he has been wanting to be on alcohol detox protocol which I note that he wants it just so he can have some Ativan even though he is not scoring for any of the detox symptoms. It is not even clear if he has been reliable historian about his alcohol consumption. MENTAL STATUS EXAMINATION Middle-aged white male who was casually dressed with fair personal hygiene and appears to be in no acute distress or discomfort. He was awake and alert with intact orientation. His mood was anxious with congruent affect. He reports having suicidal ideation and auditory hallucinations. His insight and judgement remains significantly impaired. TREATMENT PLAN 1. Will continue him on his current medications and treatment protocol. Will monitor his response and make further adjustments as needed. 2. Will continue to follow up. Dictated by... Kenneth Gale/martha TD: 01/08/2017 17:47 JOB #: [id number] Unit #: [id number] #: [id number] Patient: LASHA KHAN [facility] PROGRESS NOTES Page 1 of 1 X Dominique Almanza MD PROGRESS NOTE
--- NOTE | ~2017-01-06 | PN ---
Unit #: [id number] #: [id number] Patient: LASHA KHAN [id number] [facility] [address] [place] [address] [id number] I MR#: [id number] NAME: LASHA KHAN. ROOM: P113 Age: 47 Sex: M Admission Date: 01/06/2017 : 1970 Attending Physician: Dominique Almanza M.D. Admitting Physician: Dominique Almanza M.D. Primary Care Physician: Generic Doctor Not In System [facility] PROGRESS NOTES DATE 01/09/2017 DISCUSSION Mr. Khan is a 47-year-old white male who was seen today and chart was reviewed and case was discussed with the staff. He has been anxious, withdrawn and rather seclusive to himself. Meanwhile, treatment recommendations and has been taking the medications and tolerating them fairly well with no reported side effects. MENTAL STATUS EXAMINATION Middle-aged white male who was casually dressed with fair personal hygiene and appears to be in slight distress and discomfort. He was awake and alert with impaired attention and concentration. His mood was anxious and depressed with congruent affect. He denies any current suicidal or homicidal ideation. His insight and judgement remains slightly impaired. TREATMENT PLAN 1. Will continue on his current treatment protocol. Patient has been complaining of abdominal pain and medical consultation was requested. 2. Will continue to follow up. Dictated by... Dominique Almanza M.D. IAA/martha TD: 01/09/2017 22:33 JOB #: [id number] Unit #: [id number] #: [id number] Patient: LASHA KHAN BRITTNEY PROGRESS NOTES Page 1 of 1 X Dominique Almanza MD PROGRESS NOTE
--- NOTE | ~2017-01-06 | HP ---
Unit #: [id number] #: [id number] Patient: SEVERINO KHAN [id number] [place] [address] [id number] MR#: [id number] NAME: SEVERINO KHAN. ROOM: P113 Age: 46 Sex: M Admission Date: 01/06/2017 : 1970 Attending Physician: Dominique Almanza M.D. Admitting Physician: Dominique Almanza M.D. Primary Care Physician: Generic Doctor Not In System HISTORY AND PHYSICAL HISTORY OF PRESENT ILLNESS Severino is a 46 year old admitted to [address] [place] [address] because of his continued depression and verbalizing wanting to hurt himself. He has had numerous admissions to this facility. PAST MEDICAL HISTORY 1. Morbid obesity. 2. Gastroparesis. 3. History of polysubstance abuse. PAST SURGICAL HISTORY 1. Appendectomy. 2. Cholecystectomy. 3. Fractured femur with ORIF. 4. 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 ALLERGIES Darvocet, Toradol (rash). SOCIAL HISTORY He denies cigarettes and alcohol. Admits to a history of illicit drug use, but denies anything currently. FAMILY HISTORY Medically noncontributory. REVIEW OF SYSTEMS CONSTITUTIONAL: No fever or chills. HEENT: Denies any sore throat, ear pain or runny nose. CARDIOVASCULAR: Denies chest pain, irregular heart rhythm or palpitations. CHEST: Denies shortness of breath or cough. No hemoptysis. GASTROINTESTINAL: Denies nausea, vomiting, diarrhea or chronic constipation. ENDOCRINE: Denies history of increased thirst or urination. No recent significant weight loss or gain. GENITOURINARY: Denies dysuria, frequency, or hematuria. SKIN: Denies any rashes. HEMATOLOGIC: Denies history of increased bleeding or bruising. MUSCULOSKELETAL: Denies any hot, swollen joints. No generalized muscle pain. NEUROLOGIC: Denies problems with vision or speech. No frequent, severe headaches. No numbness, tingling or weakness in any extremities. Denies loss of bladder or bowel control. Unit #: [id number] #: [id number] Patient: SEVERINO KHAN CURRENT MEDICATIONS 1. Remeron 45 mg q.h.s. 2. Seroquel 600 mg q.h.s. 3. Naproxen 500 mg b.i.d. 4. Vistaril 50 mg t.i.d. 5. Milk of Magnesia p.r.n. 6. Maalox p.r.n. 7. Norvasc 10 mg q. day. 8. Nicotine patch 14 mg q. day. PHYSICAL EXAMINATION GENERAL: Alert, obese. No apparent distress. VITAL SIGNS: Blood pressure 120/72, heart rate 80, respirations 16, and temperature 98.6. WEIGHT: 280. HEIGHT: 6 feet 2 inches. SKIN: Warm and dry without rash or lesion. HEENT: Normocephalic. TMs not viewed. Oral and nasal passages clear. Conjunctivae clear. PERRLA. EOMs intact. NECK: Supple without lymphadenopathy or thyromegaly. HEART: Regular rate and rhythm without murmur. LUNGS: Clear. ABDOMEN: Soft, nontender. : Not done. EXTREMITIES: No evidence of cyanosis, clubbing or edema. Moves all without focal deficit. NEUROLOGICAL: Grossly within normal limits. Cranial Nerves: II: Visual fountain are intact. III, IV AND : Extraocular movements are intact. Pupils are equal, round and reactive to light. V: Facial sensation is grossly normal. VII: Facial movements and expression are normal. VIII: Auditory acuity grossly intact. IX, X: Uvula is midline. Phonation is normal. XI: Patient shrugs shoulders and turns head normally. XII: Tongue protrudes in the midline. Sensory and Motor Function: Sensory and motor sensation is grossly normal. Motor: moves all extremities well. Coordination: Gait is normal. Deep Tendon Reflexes: Intact. IMPRESSION Psychiatric admission. RECOMMENDATIONS PSYCHIATRIC: Per psychiatrist. MEDICAL: I see no contraindication to participate in this facility's activities. MEDICAL PROGNOSIS Good. MEDICAL CONDITION Stable. Dictated by... So Prince P.A.-C. for Unit #: [id number] #: [id number] Patient: ERINSEVERINO Kenneth Rutledge/elliot TD: 01/07/2017 07:37 JOB #: [id number] HISTORY AND PHYSICAL Page 1 of 1 X So Prince X HISTORY AND PHYSICAL
--- NOTE | ~2017-01-06 | PN ---
Unit #: [id number] #: [id number] Patient: LASHA KHAN [id number] [facility] [address] [place] [address] [id number] MR#: [id number] NAME: LASHA KHAN. ROOM: 13 Age: 47 Sex: M Admission Date: 01/06/2017 : 1970 Attending Physician: Dominique Almanza M.D. Admitting Physician: Dominique lAmanza M.D. Primary Care Physician: Generic Doctor Not In System [facility] PROGRESS NOTES DATE 01/08/2017 DISCUSSION Mr. Khan is a 46-year-old, white male who was seen today and chart was reviewed and case was discussed with the staff. He has been anxious, withdrawn and rather seclusive to himself. Meanwhile, he has been cooperative with treatment recommendations and has been taking medications and tolerating them fairly well with no reported side effects. MENTAL STATUS EXAM Middle-aged white male who was casually dressed with fair personal hygiene, appears to be in no acute distress or discomfort. He was awake and alert with intact orientation. His mood was anxious with congruent affect. He denies any suicidal or homicidal ideation. His insight and judgement remains slightly impaired. TREATMENT PLAN 1. We will continue him on his current treatment protocol. We will monitor his response to the medication and make further adjustments as needed. 2. We will continue to follow up. Dictated by... Kenneth Gale/janett TD: 01/09/2017 01:01 JOB #: [id number] Unit #: [id number] #: [id number] Patient: LASHA KHAN BRITTNEY PROGRESS NOTES Page 1 of 1 X Dominique Almanza MD PROGRESS NOTE
--- NOTE | ~2017-01-06 | PN ---
Unit #: [id number] #: [id number] Patient: LASHA KHAN [id number] [facility] [address] [place] [address] [id number] MR#: [id number] NAME: LASHA KHAN. ROOM: 13 Age: 47 Sex: M Admission Date: 01/06/2017 : 1970 Attending Physician: Dominique Almanza M.D. Admitting Physician: Dominique Almanza M.D. Primary Care Physician: Yordan Doctor Not In System [facility] PROGRESS NOTES DATE OF SERVICE: 01/10/2017 SUBJECTIVE Mr. Khan is a 47-year-old white male, who was seen today and chart was reviewed and the case was discussed with the staff. He has been anxious, withdrawn, and rather seclusive to himself. Meanwhile, he has been cooperative with the treatment recommendations and has been taking the medications and tolerating them fairly well with no reported side effects. He reports that he is feeling better than yesterday, particularly with his abdominal pain, though it still has been hurting. Meanwhile, he still reports some depressive symptoms and suicidal ideations. MENTAL STATUS EXAMINATION Middle-aged white male, who was casually dressed with fair personal hygiene, and appears to be in no acute distress or discomfort. He was awake and alert on interaction with intact orientation. His mood was anxious with a congruent affect. His speech was slow and goal directed. He denies any suicidal or homicidal ideations. His insight and judgment remain slightly impaired. TREATMENT PLAN 1. We will continue him on his current medications and treatment protocol. We will monitor his response to the medications and make further adjustments as needed. 2. We will continue to follow up. Dictated by... Kenneth Gale/cornelia TD: 01/10/2017 14:20 JOB #: [id number] Unit #: [id number] #: [id number] Patient: LASHA KHANHEBER PROGRESS NOTES Page 1 of 1 X Dominique Almanza MD PROGRESS NOTE
--- NOTE | ~2017-01-06 | PN ---
Unit #: [id number] #: [id number] Patient: LASHA KHAN [id number] [facility] [address] [place] [address] [id number] MR#: [id number] NAME: LASHA KHAN. ROOM: P113 Age: 47 Sex: M Admission Date: 01/06/2017 : 1970 Attending Physician: Dominique Almanza M.D. Admitting Physician: Dominique Almanza M.D. Primary Care Physician: Generic Doctor Not In System [facility] PROGRESS NOTES DATE 01/12/2017 DISCUSSION Mr. Khan is a 47-year-old, white male who was seen today and chart was reviewed and case was discussed with the staff. He has been anxious though reports doing better with his mood, depression and appears to be socializing, interacting and smiling appropriately. Meanwhile, he has been taking medications and tolerating them fairly well. MENTAL STATUS EXAM Middle-age white male who was casually dressed with fair personal hygiene, appears to be in no acute distress or discomfort. He was awake and alert on interaction with intact orientation. His mood was anxious with congruent affect. He denies any suicidal or homicidal ideation. His insight and judgement remains slightly impaired. TREATMENT PLAN We will continue him on his current medications and treatment protocol. We will monitor his response and we will consider doing discharge planning tomorrow. Dictated by... Kenneth Gale/janett TD: 01/12/2017 23:11 JOB #: [id number] Unit #: [id number] #: [id number] Patient: LASHA KHAN BRITTNEY PROGRESS NOTES Page 1 of 1 X Dominique Almanza MD PROGRESS NOTE
--- NOTE | ~2017-01-06 | PN ---
Unit #: [id number] #: [id number] Patient: LASHA KHAN [id number] [facility] [address] [place] [address] [id number] MR#: [id number] NAME: LASHA KHAN. ROOM: P113 Age: 47 Sex: M Admission Date: 01/06/2017 : 1970 Attending Physician: Dominique Almanza M.D. Admitting Physician: Dominique Almanza M.D. Primary Care Physician: Generic Doctor Not In System [facility] PROGRESS NOTES DATE 01/11/2017 DISCUSSION Mr. Khan is a 47-year-old, white male who was seen today and chart was reviewed and case was discussed with the staff. He has been anxious, withdrawn and rather seclusive to himself. Meanwhile, he has been cooperative with the treatment recommendations. He has been taking the medication and tolerating them fairly well with no reported side effects. MENTAL STATUS EXAM Middle-aged white male who was casually dressed with fair personal hygiene, appears to be in no acute distress or discomfort. He was awake and alert on interaction with intact orientation. His mood was anxious with congruent affect. He denies any suicidal or homicidal ideation. His insight and judgement remains slightly impaired. TREATMENT PLAN 1. We will continue him on his current medications and treatment protocol. We will monitor his response and make further adjustments as needed. 2. We will continue to follow up. Dictated by... Kenneth Gale/janett TD: 01/12/2017 03:12 JOB #: [id number] Unit #: [id number] #: [id number] Patient: LASHA KHAN [facility] PROGRESS NOTES Page 1 of 1 X Dominique Almanza MD PROGRESS NOTE
[2017-01-08 09:26] LABS: BASOPHIL# 0.1 X10e3 (0-0.3); BASOPHIL% 0.9 % (0-2.5); EOSINOPHIL# 0.4 X10e3 (0-0.7); EOSINOPHIL% 4.3 % (0.0-7.0); HEMATOCRIT 48.6 % (38.0-50.0); HEMOGLOBIN 16.5 gm/dL (13.0-16.0); LYMPHOCYTE# 2.8 X10e3 (1.0-3.5); LYMPHOCYTE% 30.2 % (17.0-45.0); MEAN CELL VOLUME 83.9 FL (83-96); MEAN CORPUSCULAR HEMOGLOBIN 28.4 PG (28-34); MEAN CORPUSCULAR HGB CONC 33.9 g/dL (30-36); MEAN PLATELET VOLUME 9.6 FL (6.5-11.5); MONOCYTE# 0.7 X10e3 (0-1.0); MONOCYTE% 7.8 % (3.0-12.0); NEUTROPHIL# 5.2 X10e3 (1.5-7.1); NEUTROPHIL% 56.8 % (40-75); PLATELET COUNT 190 X10e3 (140-420); RED CELL DISTRIBUTION WIDTH 14.6 % (11.0-15.5); WHITE BLOOD COUNT 9.2 X10e3 (4.0-10.5)
[2017-01-08 09:30] LABS: DIFF IND NO
[2017-01-08 09:50] LABS: BILIRUBIN,TOTAL 0.5 mg/dL (0.2-2.0); CALCIUM SERUM 9.1 mg/dL (8.4-10.2); GLOM FILT RATE Estimated 91.1 mL/min (>60); POTASSIUM 4.3 mmol/L (3.5-5.1); PROTEIN TOTAL SERUM 6.7 g/dL (6.0-8.3)
== END 2017-01-13 10:40 | disposition home or self-care (01) | DRG 885 ==
LOC: P1S 16:35
PROVIDERS: Psychiatry & Neurology Psychiatry
DX: F31.32 Bipolar disorder, current episode depressed, moderate (principal); E66.01 Morbid (severe) obesity due to excess calories; I10 Essential (primary) hypertension; F10.20 Alcohol dependence, uncomplicated; K21.9 Gastro-esophageal reflux disease without esophagitis; F41.9 Anxiety disorder, unspecified; Z88.5 Allergy status to narcotic agent; G89.29 Other chronic pain; R10.9 Unspecified abdominal pain
CPT/HCPCS: 80053; 85025

== ENCOUNTER 2017-04-09 11:36 | Emergency (ER) | payer OTHER ==
[~2017-04-09] VITALS: Ht 188 cm; Wt 129.3 kg
[2017-04-09] MEDS ORDERED: ZOFRAN PO (11:48)
[2017-04-09] MEDS ORDERED: HYDROXYZINE HCL50 MG PO (11:48)
[2017-04-09] MEDS ORDERED: QUETIAPINE FUM300 MG PO (11:49)
[2017-04-09] MEDS ORDERED: AMLODIPINE BESY10 MG PO (11:49)
[2017-04-09] MEDS ORDERED: VIVLODEX5 MG PO (11:50)
[2017-04-09] MEDS ORDERED: OMEPRAZOLE20 M2 PO (11:50)
== END 2017-04-09 16:33 ==
LOC: CED 11:36
DX: R45.851 Suicidal ideations (principal); R45.850 Homicidal ideations; Z88.8 Allergy status to other drugs, medicaments and biological substances; Z79.899 Other long term (current) drug therapy
CPT/HCPCS: 99285